=== PATIENT | female | born 1995 | race African-American/Black ===

== ENCOUNTER 2021-04-30 06:29 | Emergency (ER) | payer MEDICAID ==
[~2021-04-30] VITALS: Ht 165.1 cm; Wt 50.0 kg
[2021-04-30] MEDS ORDERED: CEFTRIAXONE SODIUM 500 MG/VIAL IM ONE (07:30)
[2021-04-30] MEDS ORDERED: DOXY-326 PO (07:39)
[2021-04-30 08:25] VITALS: BP 115/63
== END 2021-04-30 08:26 | disposition home or self-care (01) ==
LOC: ER 06:29
DX: A54.9 Gonococcal infection, unspecified (principal)
CPT/HCPCS: 96372; 99283; J0696

== ENCOUNTER 2025-01-31 04:19 | Emergency (ER) | payer SELFPAY ==
[~2025-01-31] VITALS: Ht 177.8 cm; Wt 50.0 kg
[~2025-01-31 04:19] MED LIST: DOXY-461 PO
[2025-01-31 04:26] VITALS: O2SAT 100
[2025-01-31] MEDS: LIDOCAINE HCL 1% 20ML VIAL INFIL ONE (06:15)
[2025-01-31] MEDS: TETANUS, DIPHTHERIA, PERTUSSIS VAC/PF 0.5ML (>10YR OLD) IM ONE (06:18)
[2025-01-31] MEDS: IBUPROFEN 400MG TABLET PO SCH (10:39)
[2025-01-31 10:40] VITALS: BP 102/71; PULSE 64; RESP 13; TEMP 37; O2SAT 100
== END 2025-01-31 10:44 | disposition home or self-care (01) ==
LOC: ER 04:19
DX: S01.81XA Laceration without foreign body of other part of head, initial encounter (principal); S41.112A Laceration without foreign body of left upper arm, initial encounter; S20.212A Contusion of left front wall of thorax, initial encounter; F12.90 Cannabis use, unspecified, uncomplicated; Y04.0XXA Assault by unarmed brawl or fight, initial encounter; Y93.89 Activity, other specified; Y92.89 Other specified places as the place of occurrence of the external cause; Y99.8 Other external cause status
CPT/HCPCS: 71100; 90715; 12002; 12011; 90471; 99285; J2003; Z7610 ×2